=== PATIENT | male | born 1950 | race Caucasian/White ===

== ENCOUNTER 2023-11-27 17:26 | Emergency (ER) | payer OTHER ==
[2023-11-27 18:23] VITALS: BP 145/83; PULSE 74; RESP 16; TEMP 98; BMI 25.4
[2023-11-27 18:36] LABS: HEMATOCRIT 44.3 % (35.4-49); HEMOGLOBIN 14.9 G/dL (11.7-16.9); MCH 32.2 pg (25.7-33.7); MCHC 33.6 g/dl (32.0-35.9); MEAN CELL VOLUME 95.8 fl (80-96); MEAN PLT VOLUME 7.6 fl (7.5-11.1); PLATELET COUNT 253.5 10^3/uL (134-434); RBC 4.62 10^6/uL (4.00-5.60); RDW 13.6 % (11.9-15.9); WHITE BLOOD COUNT 6.7 10^3/uL (4.0-10.8)
[2023-11-27 18:51] LABS: INR 1.04 (0.83-1.09); PROTHROMBIN TIME (PATIENT) 12.1 SEC (9.7-13.0)
[2023-11-27 18:53] LABS: ACTIVATED PTT 32.5 SECONDS (25.2-36.5)
[2023-11-27 18:54] LABS: PLATELET ESTIMATE ADEQUATE
[2023-11-27 18:59] LABS: ALBUMIN 4.3 g/dl (3.4-5.0); BILIRUBIN,TOTAL 0.8 mg/dl (0.2-1); CALCIUM 9.5 mg/dl (8.5-10.1); CREATININE 0.7 mg/dl (0.6-1.3); MAGNESIUM 2.1 mg/dL (1.8-2.4); TOT PROT 6.6 g/dl (6.4-8.2)
[2023-11-27] MEDS ORDERED: DIPHTH,PERTUSS(ACELL),TET 0.5 ML DISP.SYRIN IM ONE (19:43)
[2023-11-27] MEDS: DIPHTH,PERTUSS(ACELL),TET 0.5 ML DISP.SYRIN IM ONE (19:52)
[2023-11-27] MEDS ORDERED: SULFAMETHOXAZOLE/TRIMETHOPRIM 800MG/160MG D.S. TABLET ONE (19:55)
[2023-11-27] MEDS: SULFAMETHOXAZOLE/TRIMETHOPRIM 800MG/160MG D.S. TABLET PO ONE (19:56)
== END 2023-11-27 20:03 | disposition home or self-care (01) ==
LOC: FER 17:26
PROC: 3E0234Z Introduction of Serum, Toxoid and Vaccine into Muscle, Percutaneous Approach (ICD-10-PCS; principal; 2023-11-27)
DX: I48.91 Unspecified atrial fibrillation (principal); Z23 Encounter for immunization
CPT/HCPCS: 36415; 71045-TC-FY; 80053; 83735; 84443; 84484; 85027; 85610; 85730; 90471; 90715; 93005; 93971-TC; 99285-25